=== PATIENT | female | born 2000 | race Caucasian/White ===

== ENCOUNTER 2022-06-17 18:40 | Emergency (ER) | payer MEDICAID ==
[~2022-06-17] VITALS: Ht 167.6 cm; Wt 95.0 kg
[2022-06-17] MEDS ORDERED: MORPHINE SULFATE 4 MG/ML CPJ (NOT FOR IM USE) IV STA (23:29)
[2022-06-17] MEDS ORDERED: ONDANSETRON HCL 4MG/2ML INJ IV STA (23:29)
[2022-06-17] MEDS ORDERED: PANTOPRAZOLE SODIUM 40 MG/VIAL IV STA (23:29)
[2022-06-17] MEDS ORDERED: SODIUM CHLORIDE 0.9% 1,000 ML IV ONE (23:30)
[2022-06-17 23:51] LABS: BASOPHILS % 0.6 % (0.0-2.0); EOSINOPHILS % 0.8 % (0.0-5.0); HEMATOCRIT. 26.4 % (36.0-48.0); MEAN CORPUSCULAR HEMOGLOBIN 18.5 pg (28.0-32.0); MEAN CORPUSCULAR VOLUME 60.8 fL (81.0-99.0); MEAN PLATELET VOLUME 8.4 fl (7.4-10.4); MONOCYTES % 8.8 % (2.0-8.0); NEUTROPHILS % 72.8 % (40.0-76.0); PLATELET 335 x1000/uL (130-400); RED BLOOD CELL COUNT 4.33 mill/uL (4.2-5.4); RED CELL DISTRIBUTION WIDTH 19.5 % (11.6-14.6)
[2022-06-17 23:55] LABS: CHLORIDE 103 mEq/L (98-107)
[2022-06-17 23:59] LABS: INR 1.1; PROTHROMBIN TIME 11.3 sec (9.6-11.0)
[2022-06-18 00:04] LABS: HCG SCREEN NEGATIVE
[2022-06-18] MEDS ORDERED: MORPHINE SULFATE 4 MG/ML CPJ (NOT FOR IM USE) IV NR (01:30)
[2022-06-18] MEDS ORDERED: PANTOPRAZOLE SODIUM 40 MG/VIAL IV NR (01:30)
[2022-06-18] MEDS ORDERED: ONDANSETRON HCL 4MG/2ML INJ IV NR (01:30)
[2022-06-18 01:44] LABS: CLARITY URINE CLEAR (CLEAR); COLOR URINE YELLOW (YELLOW); PROTEIN URINE 1+ (NEGATIVE); SPECIFIC GRAVITY URINE 1.025 (1.005-1.030)
[2022-06-18 01:45] LABS: KETONES URINE 2+ (NEGATIVE); NITRITE URINE NEGATIVE (NEGATIVE); OCCULT BLOOD URINE 2+ (NEGATIVE); UROBILINOGEN URINE 0.2 E.U./dL (0.2-1.0)
[2022-06-18 01:46] LABS: LEUKOCYTE ESTERASE URINE NEGATIVE (NEGATIVE)
[2022-06-18 02:04] LABS: *AMPHETAMINES SCREEN URINE NEGATIVE (NEGATIVE); *BARBITURATES SCREEN URINE NEGATIVE (NEGATIVE); *BENZODIAZEPINES SCREEN URINE NEGATIVE (NEGATIVE); *COCAINE SCREEN URINE NEGATIVE (NEGATIVE); METHADONE URINE SCREEN NEGATIVE (NEGATIVE); OPIATES URINE SCREEN NEGATIVE (NEGATIVE); PHENCYCLIDINE URINE SCREEN NEGATIVE (NEGATIVE)
[2022-06-18 02:09] LABS: CANNABINOID URINE SCREEN PRESUMTIVE POSITIVE (NEGATIVE)
[2022-06-18] MEDS ORDERED: HALOPERIDOL LACTATE 5MG/ML VIAL IM NR (02:30)
[2022-06-18 03:16] LABS: PLATELET ESTIMATE NORMAL
[2022-06-18 04:23] VITALS: BP 128/81
[2022-06-18] MEDS ORDERED: PROT40 MT (05:06)
[2022-06-18] MEDS ORDERED: ACETAMINOPHEN 325MG TABLET PO ONE (05:15)
[2022-06-18] MEDS ORDERED: MAGNESIUM/ALUMINUM HYDROXIDE/SIMETHICONE 30ML UDC PO ONE (05:15)
== END 2022-06-18 05:32 | disposition home or self-care (01) ==
LOC: ER 18:40
DX: R10.33 Periumbilical pain (principal); R11.2 Nausea with vomiting, unspecified
CPT/HCPCS: 36415; 80053; 80305; 81003; 83690; 84703; 85025; 85610; 96361; 96372; 96374; 96375; 99284; C9113; J1630; J2270; J2405; J7030

== ENCOUNTER 2024-05-06 11:36 | Emergency (ER) | payer MEDICAID ==
[~2024-05-06] VITALS: Ht 167.6 cm; Wt 77.1 kg
[~2024-05-06 11:36] MED LIST: PROT40 MT
[2024-05-06 11:38] VITALS: O2SAT 100
[2024-05-06] MEDS: SODIUM CHLORIDE 0.9% 1,000 ML IV ONE (12:52)
[2024-05-06 13:01] LABS: BASOPHILS % 0.4 % (0.0-2.0); DIFFERENTIAL COMMENT 0; EOSINOPHILS % 0.3 % (0.0-5.0); HEMATOCRIT. 33.2 % (36.0-48.0); HEMOGLOBIN. 10.2 g/dL (12.0-16.0); LYMPHOCYTES % 10.9 % (20.0-50.0); MEAN CORPUSCULAR HEMOGLOBIN 22.2 pg (28.0-32.0); MEAN CORPUSCULAR HGB CONC 30.8 g/dL (31.0-37.0); MEAN CORPUSCULAR VOLUME 72.1 fL (81.0-99.0); MEAN PLATELET VOLUME 9.7 fl (7.4-10.4); NEUTROPHILS % 83.4 % (40.0-76.0); PLATELET 307 x1000/uL (130-400); WHITE BLOOD COUNT 13.8 x1000/uL (4.5-11.0)
[2024-05-06 13:08] LABS: CHLORIDE 108 mEq/L (98-107); POTASSIUM 3.4 mEq/L (3.5-5.1); SODIUM 140 mEq/L (136-145)
[2024-05-06 13:09] LABS: CALCIUM 9.8 mg/dL (8.7-10.4); CARBON DIOXIDE 22 mEq/L (21-32)
[2024-05-06 13:14] LABS: CREATININE 0.8 mg/dL (0.6-1.0); GLUCOSE 132 mg/dL (70-105)
[2024-05-06 13:16] LABS: ALANINE AMINOTRANSFERASE 9 IU/L (10-49); ASPARTATE AMINOTRANSFERASE 15 IU/L (<34); BILIRUBIN DIRECT 0.2 mg/dL (<=3.0); BILIRUBIN TOTAL 0.5 mg/dL (0.1-1.0)
[2024-05-06 13:17] LABS: PROTEIN TOTAL 8.1 g/dL (6.0-8.3)
[2024-05-06] MEDS: MAGNESIUM/ALUMINUM HYDROXIDE/SIMETHICONE 30ML UDC PO ONE (13:20)
[2024-05-06] MEDS: ONDANSETRON 4MG ODT PO ONE (13:20)
[2024-05-06 13:22] LABS: HCG SCREEN NEGATIVE
[2024-05-06 13:23] LABS: UREA NITROGEN BLOOD < 5 mg/dL (9-23)
[2024-05-06] MEDS: KETOROLAC 15MG/ML VIAL IV ONE (13:34)
[2024-05-06] MEDS: MORPHINE SULFATE 10 MG/ML INJ (NOT FOR IM USE) IV SCH (14:15)
[2024-05-06] MEDS: ONDANSETRON HCL 4MG/2ML INJ IV ONE (14:24)
[2024-05-06] MEDS: MORPHINE SULFATE 4 MG/ML INJ (FOR IV/IM USE) IV ONE (14:24)
[2024-05-06 17:26] LABS: CLARITY URINE CLEAR (CLEAR); COLOR URINE YELLOW (YELLOW); GLUCOSE URINE NEGATIVE (NEGATIVE); KETONES URINE 2+ (NEGATIVE); LEUKOCYTE ESTERASE URINE NEGATIVE (NEGATIVE); NITRITE URINE POSITIVE (NEGATIVE); OCCULT BLOOD URINE NEGATIVE (NEGATIVE); PROTEIN URINE NEGATIVE (NEGATIVE); UROBILINOGEN URINE 0.2 E.U./dL (0.2-1.0)
[2024-05-06 17:29] LABS: *AMPHETAMINES SCREEN URINE NEGATIVE (NEGATIVE); *BARBITURATES SCREEN URINE NEGATIVE (NEGATIVE); *BENZODIAZEPINES SCREEN URINE NEGATIVE (NEGATIVE); *COCAINE SCREEN URINE NEGATIVE (NEGATIVE); CANNABINOID URINE SCREEN PRESUMPTIVE POSITIVE (NEGATIVE); ECSTASY MDMA SCREEN URINE NEGATIVE (NEGATIVE); METHADONE URINE SCREEN NEGATIVE (NEGATIVE); OPIATES URINE SCREEN PRESUMPTIVE POSITIVE (NEGATIVE); PHENCYCLIDINE URINE SCREEN NEGATIVE (NEGATIVE)
[2024-05-06 17:50] LABS: BACTERIA URINE 3+; SQUAMOUS EPITHELIAL CELL URINE FEW /lpf (RARE/1+)
[2024-05-06 17:51] LABS: RBC URINE 0-2 /hpf (0-2)
[2024-05-06] MEDS ORDERED: FAMO20TA8 MT (17:55)
[2024-05-06] MEDS ORDERED: ONDA-239 PO (17:55)
[2024-05-06] MEDS ORDERED: NITR100C MT (17:57)
[2024-05-06] MEDS: IOHEXOL-300 100 ML BOTTLE ONE (18:01)
[2024-05-06 18:43] VITALS: BP 112/65; PULSE 65; RESP 15; TEMP 36.83628; O2SAT 100
== END 2024-05-06 18:45 | disposition home or self-care (01) ==
LOC: ER 11:36
DX: N39.0 Urinary tract infection, site not specified (principal); R11.2 Nausea with vomiting, unspecified; K21.9 Gastro-esophageal reflux disease without esophagitis; K58.9 Irritable bowel syndrome, unspecified
CPT/HCPCS: 80076; 80305; 80048; 81003; 84703; 83690; 85025; 36415; 74177; 96374; 96375; 99285; Q9967; Q0162; J1885; J2405; J2270; J7030; Z7610

== ENCOUNTER 2024-05-08 04:01 | Emergency (ER) | payer MEDICAID ==
[~2024-05-08] VITALS: Ht 170.2 cm; Wt 91.0 kg
[~2024-05-08 04:01] MED LIST changes: +FAMO20TA8 MT; +NITR100C MT; +ONDA-239 PO
[2024-05-08 04:06] VITALS: O2SAT 100
[2024-05-08 05:15] LABS: BASOPHILS % 0.8 % (0.0-2.0); DIFFERENTIAL COMMENT 0; EOSINOPHILS % 0.4 % (0.0-5.0); HEMATOCRIT. 31.5 % (36.0-48.0); HEMOGLOBIN. 9.9 g/dL (12.0-16.0); LYMPHOCYTES % 14.2 % (20.0-50.0); MEAN CORPUSCULAR HEMOGLOBIN 22.6 pg (28.0-32.0); MEAN CORPUSCULAR HGB CONC 31.5 g/dL (31.0-37.0); MEAN CORPUSCULAR VOLUME 71.6 fL (81.0-99.0); MEAN PLATELET VOLUME 9.3 fl (7.4-10.4); MONOCYTES % 4.8 % (2.0-8.0); NEUTROPHILS % 79.8 % (40.0-76.0); PLATELET 267 x1000/uL (130-400); RED CELL DISTRIBUTION WIDTH 17.6 % (11.6-14.6); WHITE BLOOD COUNT 9.1 x1000/uL (4.5-11.0)
[2024-05-08 05:26] LABS: CHLORIDE 109 mEq/L (98-107); POTASSIUM 3.2 mEq/L (3.5-5.1); SODIUM 140 mEq/L (136-145)
[2024-05-08 05:27] LABS: CALCIUM 9.3 mg/dL (8.7-10.4); CARBON DIOXIDE 21 mEq/L (21-32)
[2024-05-08 05:32] LABS: CREATININE 0.8 mg/dL (0.6-1.0); GLUCOSE 168 mg/dL (70-105)
[2024-05-08 05:34] LABS: ALANINE AMINOTRANSFERASE 10 IU/L (10-49); ALBUMIN 4.5 g/dL (3.2-4.8); ASPARTATE AMINOTRANSFERASE 13 IU/L (<34); BILIRUBIN DIRECT 0.1 mg/dL (<=3.0); BILIRUBIN TOTAL 0.4 mg/dL (0.1-1.0); PROTEIN TOTAL 7.4 g/dL (6.0-8.3)
[2024-05-08 05:35] LABS: ETHANOL BLOOD < 10 mg/dL (<10); UREA NITROGEN BLOOD < 5 mg/dL (9-23)
[2024-05-08 05:49] LABS: HCG SCREEN NEGATIVE
[2024-05-08] MEDS ORDERED: ONDANSETRON HCL 4MG/2ML INJ IV STA (06:19)
[2024-05-08] MEDS ORDERED: MORPHINE SULFATE 4 MG/ML INJ (FOR IV/IM USE) IV STA (06:19)
[2024-05-08] MEDS: SODIUM CHLORIDE 0.9% 1,000 ML IV ONE (06:30)
[2024-05-08] MEDS: MORPHINE SULFATE 4 MG/ML INJ (FOR IV/IM USE) IV NR (09:19)
[2024-05-08] MEDS: ONDANSETRON HCL 4MG/2ML INJ IV NR (09:19)
[2024-05-08] MEDS: MORPHINE SULFATE 4 MG/ML INJ (FOR IV/IM USE) IV ONE (11:43)
[2024-05-08] MEDS: ONDANSETRON HCL 4MG/2ML INJ IV ONE (11:43)
[2024-05-08 13:06] VITALS: BP 114/61; PULSE 86; RESP 17; TEMP 37.05852; O2SAT 100
== END 2024-05-08 13:16 | disposition short-term general hospital (02) ==
LOC: ER 04:01 → EDBEDREQ 08:07 → CANBEDREQ 13:11 → ER 13:16
DX: R10.9 Unspecified abdominal pain (principal); R11.2 Nausea with vomiting, unspecified; Z79.899 Other long term (current) drug therapy
CPT/HCPCS: 80076; 80048; 80320; 84703; 83690; 85025; 36415; 96361; 96374; 96375; 96376; 99285; J2405; J2270; J7030; Z7610 ×3; G0480